=== PATIENT | female | born 2000 | race Asian ===

== ENCOUNTER 2025-02-14 12:46 | Emergency (ER) | payer MEDICAID, OTHER ==
[~2025-02-14] VITALS: Ht 165.1 cm; Wt 75.0 kg
[2025-02-14 12:56] VITALS: O2SAT 99
[2025-02-14] MEDS: KETOROLAC 30MG/ML VIAL IM ONE (15:45)
[2025-02-14 16:19] LABS: CLARITY URINE CLOUDY (CLEAR); GLUCOSE URINE NEGATIVE (NEGATIVE); KETONES URINE NEGATIVE (NEGATIVE); LEUKOCYTE ESTERASE URINE 3+ (NEGATIVE); NITRITE URINE NEGATIVE (NEGATIVE); OCCULT BLOOD URINE 1+ (NEGATIVE); PH URINE 7.0 (4.5-8.0); PROTEIN URINE TRACE (NEGATIVE); SPECIFIC GRAVITY URINE 1.008 (1.005-1.030); UROBILINOGEN URINE 1.0 E.U./dL (0.2-1.0)
[2025-02-14] MEDS ORDERED: CEPH250C2 MT (16:20)
[2025-02-14] MEDS ORDERED: PHEN-815 MT (16:20)
[2025-02-14] MEDS ORDERED: LIDO-53 TP (16:22)
[2025-02-14] MEDS ORDERED: IBUP-2028 MT (16:22)
[2025-02-14 16:31] LABS: COLOR URINE STRAW (YELLOW)
[2025-02-14 16:33] LABS: WBC URINE TNTC /hpf (0-2)
[2025-02-14 16:34] LABS: BACTERIA URINE TRACE; MUCUS URINE TRACE /lpf (< = 2+); RBC URINE 0-2 /hpf (0-2); SQUAMOUS EPITHELIAL CELL URINE 1+ /lpf (RARE/1+)
[2025-02-14] MEDS: LIDOCAINE 5% PATCH TOP SCH (16:49)
[2025-02-14 16:50] VITALS: BP 118/62; PULSE 85; RESP 18; TEMP 36.9; O2SAT 99
== END 2025-02-14 16:51 | disposition home or self-care (01) ==
LOC: ER 12:46
DX: N39.0 Urinary tract infection, site not specified (principal); G89.29 Other chronic pain; M54.50 Low back pain, unspecified; Z98.890 Other specified postprocedural states
CPT/HCPCS: 99283; 81003; 81025; 87086; 87186; 87077; 96372; J1885